=== PATIENT | male | born 1950 | race Caucasian/White ===

== ENCOUNTER → 2017-11-29 | Outpatient (CLI) | payer OTHER ==
[~2017-11-29] MED LIST: BACTRIM DS TAB1 EACH PO; LIPITOR20 MG PO; TYLENOL WITH C1 EACH PO
--- NOTE | 2017-11-29 08:11 | Diagnostic Imaging Report ---
PROCEDURE:X-RAY ABDOMEN - KUB COMPARISON:KUB dated 07/07/2017 INDICATIONS:CALCULUS OF KIDNEY FINDINGS: There is a 2 mm calcification in the lower right hemipelvis not seen on the prior studies and could represent a stone within the distal ureter. No calcification overlying the renal shadows. There are no dilated loops of bowel to suggest obstruction. There are no masses. There is no evidence of free air. No acute osseous abnormalities are present. Scoliosis of the lumbar spine with a transitional L6 vertebrae. CONCLUSION: 1. No acute abdominal abnormality. 2. Possible distal right ureteral stone. Leonel Tee D.O. Dictated by: Leonel Tee D.O. on 11/29/2017 at 8:19 Electronically approved by: Leonel Tee D.O. on 11/29/2017 at 8:19
== END ==
LOC: RAD 07:33
PROVIDERS: ATTEND Urology
DX: N20.0 Calculus of kidney (principal)
CPT/HCPCS: 74000

== ENCOUNTER → 2018-01-03 | Outpatient (CLI) | payer OTHER ==
[~2018-01-03] MED LIST changes: +IOPAMIDOL 300MG/ML 100 ML INFUS..BTL IV ONE
[2018-01-03 09:07] LABS: BLOOD UREA NITROGEN 11 mg/dL (7-26); BUN/CREATININE RATIO 11 (6-25); CREATININE, SERUM 1.03 mg/dL (0.72-1.25); EST GLOMERULAR FILTRATION RATE > 60 ML/MIN (60-)
--- NOTE | 2018-01-03 11:26 | Diagnostic Imaging Report ---
PROCEDURE: INTRAVENOUS PYELOGRAM (IVP) COMPARISON: CT abdomen and pelvis without contrast 07/06/2017; abdominal radiograph 11/29/2017.. INDICATIONS: CALCULI OF URETER TECHNIQUE: A [employer] scout film was obtained demonstrating a nonobstructive gas pattern. There are no masses or abnormal calcifications. Minimal degenerative disc changes of the lumbar spine. Transitional lumbosacral anatomy with a left-sided pseudoarthrosis between L5 and S1. After intravenous administration of 100 cc of omnipaque 300, multiple frontal and oblique images of the abdomen and pelvis were obtained with and without compression. Post void images were also obtained. FINDINGS: KIDNEYS: Renal position, contours, and sizes are normal. There is prompt bilateral excretion of contrast. The calices and renal pelves are normal in appearance bilaterally without evidence of dilatation or filling defect. URETERS: Both ureters are fully visualized in their course to the bladder with normal course and caliber. No evidence of irregularity or filling defect. BLADDER: Normal. No significant post void residual. OTHER: Right hemipelvic calcification described on the comparison KUB is shown to be external to the ureter and most likely represents a phlebolith. CONCLUSION: Normal IVP. Dictated by: Srini Weems M.D. on 01/03/2018 at 11:35 Electronically approved by: Srini Weems M.D. on 01/03/2018 at 11:35
== END ==
LOC: DX 08:21
PROVIDERS: ATTEND Urology
DX: N20.1 Calculus of ureter (principal)
CPT/HCPCS: 36415; 74400; 82565; 84520; Q9967

== ENCOUNTER → 2018-05-02 | Outpatient (CLI) | payer OTHER ==
[~2018-05-02] MED LIST changes: -IOPAMIDOL 300MG/ML 100 ML INFUS..BTL IV ONE
--- NOTE | 2018-05-02 11:01 | Diagnostic Imaging Report ---
PROCEDURE:X-RAY ABDOMEN - [facility] COMPARISON:Intravenous pyelogram 01/03/2018. INDICATIONS:CALCULUS OF THE KIDNEY FINDINGS: The bowel gas pattern shows no dilated, air-filled loops of bowel. No abnormal calcifications project over the renal shadows, expected ureteral courses, or urinary bladder. right pelvic phlebolith. No mass effect or organomegaly. Regional skeletal structures are intact with scoliotic curvature of the lumbar spine, unchanged. CONCLUSION: No plain film evidence of urolithiasis. Dictated by: Srini Weems M.D. on 05/02/2018 at 11:04 Electronically approved by: Srini Weems M.D. on 05/02/2018 at 11:04
== END ==
LOC: RAD 10:32
PROVIDERS: ATTEND Urology
DX: N20.0 Calculus of kidney (principal)
CPT/HCPCS: 74018

== ENCOUNTER → 2019-02-13 | Outpatient (CLI) | payer OTHER ==
--- NOTE | 2019-02-13 09:39 | Diagnostic Imaging Report ---
Exam: KUB-2 views Clinical History: Renal calculus. Comparison: Report from [facility]UB 07/07/2017, although images are not available for review at the time of this dictation. Findings: Nonobstructive bowel gas pattern. Bowel gas partially obscures visualization of the kidneys. No definite urinary stone. Calcification in the right pelvis likely reflects phlebolith. No acute osseous abnormality. There is dextroconvex scoliosis of the lumbar spine. Impression: No radiographic evidence of urinary stone, although evaluation is somewhat limited by overlying bowel gas. Signed by: Dr. Rigoberto Bonilla MD on 02/13/2019 9:36 AM
== END ==
LOC: RAD 08:57
PROVIDERS: ATTEND Urology
DX: N20.0 Calculus of kidney (principal)
CPT/HCPCS: 74018

== ENCOUNTER → 2019-09-16 | Outpatient (CLI) | payer MEDICARE ==
--- NOTE | 2019-09-16 14:09 | Diagnostic Imaging Report ---
Abdomen, 1 view. History: Stones. Comparison: 02/13/2018. Findings: Air is scattered throughout nondilated small and large bowel. No stones are seen in the region of the kidneys. Phlebolith is noted in the right pelvis. There is dextroscoliosis of the lumbar spine with degenerative disc disease. IMPRESSION: Non-specific bowel gas pattern. No visible renal calculi. Signed by: Thiago Knott on 09/16/2019 2:05 PM
== END ==
LOC: RAD 12:45
PROVIDERS: ATTEND Urology
DX: N20.0 Calculus of kidney (principal)
CPT/HCPCS: 74018

== ENCOUNTER → 2020-08-17 | Outpatient (CLI) | payer MEDICARE ==
--- NOTE | 2020-08-17 10:31 | Diagnostic Imaging Report ---
Exam: KUB - 2 views Indication: Renal calculus Comparison: KUB of 09/16/2019 Findings: No radiographically apparent urinary calculi. Nonobstructive bowel gas pattern. No free air. Mild multilevel degenerative changes of the visualized spine and both hip joints. Impression: No radiographically apparent urinary calculi. Signed by: Pily Linda MD on 08/17/2020 10:27 AM
== END ==
LOC: RAD 09:54
PROVIDERS: ATTEND Urology
DX: N20.1 Calculus of ureter (principal)
CPT/HCPCS: 74018

== ENCOUNTER → 2021-02-13 | Outpatient (CLI) | payer MEDICARE | LOC: RAD 09:16 | PROVIDERS: ATTEND Urology | DX: N20.0 Calculus of kidney (principal) | CPT/HCPCS: 74018 ==

== ENCOUNTER → 2021-08-23 | Outpatient (CLI) | payer MEDICARE | LOC: RAD 09:54 | PROVIDERS: ATTEND Urology | DX: N20.0 Calculus of kidney (principal) | CPT/HCPCS: 74018 ==